=== PATIENT | female | born 1970 | race Caucasian/White ===

== ENCOUNTER 2019-02-20 20:52 | Emergency (ER) | payer OTHER ==
[2019-02-20] MEDS ORDERED: LIDOCAINE HCL 2% (20ML MULTI-DOSE VIAL) ONE (21:00)
[2019-02-20] MEDS ORDERED: LIDOCAINE HCL 2% (50ML VIAL) INF ONE (21:05)
[2019-02-20 21:13] VITALS: BP 112/87; PULSE 76; TEMP 98; BMI 37.8
[2019-02-20] MEDS ORDERED: CLINDAMYCIN HCL 150 MG CAPSULE (FP) PO ONE (21:39)
[2019-02-20] MEDS ORDERED: ACETAMINOPHEN 325 MG TABLET (FP) PO ONE (21:39)
[2019-02-20] MEDS ORDERED: ACETAMINOPHEN 325 MG TABLET (FP) ONE (21:40)
[2019-02-20] MEDS ORDERED: CLINDAMYCIN HCL 150 MG CAPSULE (FP) ONE (21:41)
--- NOTE | 2019-02-20 21:41 | PDOC ---
Documentation entered by Page Knight SCRIBE, acting as scribe for Penny Merritt MD. Penny Merritt MD: This documentation has been prepared by the josé migueleEugene Joy, SCRIBE, under my direction and personally reviewed by me in its entirety. I confirm that the documentation accurately reflects all work, treatment, procedures, and medical decision making performed by me. History of Present Illness - General Chief Complaint: Injury Stated Complaint: CUT RIGHT HAND WASHING DISHES History Source: Patient Exam Limitations: No Limitations - History of Present Illness Initial Comments: 02/20/19 21:05 The patient is a 48 year female old with no significant past medical history who presents to the ED with right hand laceration earlier today. As per patient she was washing the dishes when a glass broke and she cut her right hand. Patient endorses that her last tetanus shot is within 10 years. Past History - Past Medical History Allergies/Adverse Reactions: Allergies Allergy/AdvReac Type Severity Reaction Status Date / Time No Known Allergies Allergy Verified 02/20/19 20:54 Home Medications: Ambulatory Orders Clindamycin [Cleocin -] 300 mg PO Q6HPO #20 capsule 02/20/19 Rabeprazole Sodium [Aciphex] 20 mg PO DAILY 02/20/19 COPD: No GI Disorders: Yes - Immunization History Td Vaccination: Yes Immunization Up to Date: Yes - Psycho Social/Smoking Cessation Hx Smoking History: Never smoked Have you smoked in the past 12 months: No Information on smoking cessation initiated: No Hx Alcohol Use: Yes Drug/Substance Use Hx: No Review of Systems - Review of Systems Able to Perform ROS?: Yes Comments:: 02/20/19 21:06 GENERAL/CONSTITUTIONAL: No fever or chills. No weakness. HEAD, EYES, EARS, NOSE AND THROAT: No change in vision. No ear pain or discharge. No sore throat. CARDIOVASCULAR: No chest pain or shortness of breath. RESPIRATORY: No cough, wheezing, or hemoptysis. GASTROINTESTINAL: No nausea, vomiting, diarrhea or constipation. GENITOURINARY: No dysuria, frequency, or change in urination. MUSCULOSKELETAL: No joint or muscle swelling or pain. No neck or back pain. SKIN: +Right hand laceration. No rash NEUROLOGIC: No headache, vertigo, loss of consciousness, or change in strength/ sensation. ENDOCRINE: No increased thirst. No abnormal weight change. HEMATOLOGIC/LYMPHATIC: No anemia, easy bleeding, or history of blood clots. ALLERGIC/IMMUNOLOGIC: No hives or skin allergy. *Physical Exam - Vital Signs Last Vital Signs Temp Pulse Resp BP Pulse Ox 98 F 76 18 112/87 99 02/20/19 20:57 02/20/19 20:57 02/20/19 20:57 02/20/19 20:57 02/20/19 20:57 - Physical Exam 02/20/19 21:06 GENERAL: Awake, alert, and fully oriented, in no acute distress HEAD: No signs of trauma EYES: PERRLA, EOMI, sclera anicteric, conjunctiva clear ENT: Auricles normal inspection, hearing grossly normal, nares patent, oropharynx clear without exudates. Moist mucosa NECK: Normal ROM, supple, no lymphadenopathy, JVD, or masses LUNGS: Breath sounds equal, clear to auscultation bilaterally. No wheezes, and no crackles HEART: Regular rate and rhythm, normal S1 and S2, no murmurs, rubs or gallops ABDOMEN: Soft, nontender, normoactive bowel sounds. No guarding, no rebound. No masses EXTREMITIES: +2 cm laceration to 1st metacarpal on the right hand. Normal range of motion, no edema. No clubbing or cyanosis. No cords, erythema, or tenderness NEUROLOGICAL: Cranial nerves II through XII grossly intact. Normal speech, normal gait SKIN: Warm, Dry, normal turgor, no rashes or lesions noted. Procedures - Laceration/Wound Repair Right Dorsal Hand 1st digit Wound Length: to 2.5 cm Wound Explored: clean, no foreign body present Wound's Depth, Shape: into muscle, linear, flap Irrigated w/ Saline: Yes Betadine Prep: Yes Anesthesia: 2% Lidocaine Amount of Anesthetic (ccs): 2 Wound Repaired With: Sutures Suture Size/Type: 6:0 Number of Sutures: 7 Layer Closure: No Sterile Dressing Applied: Yes Splint Applied: Yes Type of Splint Applied: roberto carlos wrap Medical Decision Making - Medical Decision Making 02/20/19 21:51 Pt lacerated the MCP joint of the thumb on the right hand, dorsal aspect. No FB Pt has no tendon involvement 02/20/19 21:55 Clinda QID x 5 days and home; sutures out in 7-10 days Return for infection pus, pain, fever, red streaking up hand/arm Pt will follow with PMD Pt's tetanus is UTD Discharge - Discharge Information Problems reviewed: Yes Clinical Impression/Diagnosis: Laceration of hand Condition: Stable Disposition: HOME - Additional Discharge Information Prescriptions: Clindamycin [Cleocin -] 300 mg PO Q6HPO #20 capsule - Follow up/Referral - Patient Discharge Instructions Patient Printed Discharge Instructions: DI for Laceration Repair, DI for Laceration Repair -- Finger - Post Discharge Activity
== END 2019-02-20 21:48 | disposition home or self-care (01) ==
LOC: FER 20:52
PROC: 0HQFXZZ Repair Right Hand Skin, External Approach (ICD-10-PCS; principal; 2019-02-20)
DX: S61.011A Laceration without foreign body of right thumb without damage to nail, initial encounter (principal); W25.XXXA Contact with sharp glass, initial encounter; Y93.G1 Activity, food preparation and clean up; Y92.9 Unspecified place or not applicable
CPT/HCPCS: 99281-25